=== PATIENT | male | born 1950 | race Caucasian/White ===

== ENCOUNTER → 2020-05-13 | Outpatient (CLI) | payer OTHER ==
[~2020-05-13] MED LIST: AMLO-211 PO; FINA5TAB4 PO; SIMV20TA19 PO; TAMS-11 PO
[2020-05-13 15:38] LABS: MICROSCOPIC NOT IND
[2020-05-13 15:50] LABS: INTERNATIONAL NORMALIZED RATIO 0.98 (0.93-1.1); PROTHROMBIN TIME 10.5 Seconds (9.6-11.5)
[2020-05-13 15:51] LABS: BASOPHILS % (AUTO) 1 % (0-1); EOSINOPHILS % (AUTO) 3 % (1-7); LYMPHOCYTES % (AUTO) 23 % (22-44); MEAN CORPUSCULAR HGB CONC 34.4 g/dL (33.2-36.2); MEAN PLATELET VOLUME 10.8 fL (7.4-10.4); MONOCYTES % (AUTO) 5 % (2-9); NEUTROPHILS % (AUTO) 69 % (42-75); PLATELET COUNT 139 x10^3/uL (130-400); RED BLOOD COUNT 4.93 x10^6/uL (4.38-5.82); RED CELL DISTRIBUTION WIDTH 14.1 % (9.4-14.8)
[2020-05-13 15:52] LABS: MD NO
== END | disposition home or self-care (01) ==
LOC: STAR 14:35
PROVIDERS: ATTEND Urology
DX: Z01.812 Encounter for preprocedural laboratory examination (principal); Z20.822 Contact with and (suspected) exposure to COVID-19; N35.919 Unspecified urethral stricture, male, unspecified site
CPT/HCPCS: 81003; 85025; 85610; 85730; 87086; U0003; 36415

== ENCOUNTER 2020-05-17 14:06 | Day surgery (SDC) | payer OTHER ==
[~2020-05-17] VITALS: Ht 180.3 cm; Wt 91.8 kg
[2020-05-17] MEDS ORDERED: CHLORHEXIDINE 15 ML UDC ONE (14:18)
[2020-05-17 14:21] VITALS: BP 142/85
[2020-05-17] MEDS ORDERED: CHLORHEXIDINE 15 ML UDC PO ONE (14:30)
[2020-05-17] MEDS ORDERED: LACTATED RINGERS 1,000 ML IV SCH (14:30)
[2020-05-17] MEDS ORDERED: morphine SULFATE 10 MG/ML, 1ML IVPush PRN (15:30)
[2020-05-17] MEDS ORDERED: FENTANYL PF 100 MCG/2ML IV PRN (15:30)
[2020-05-17] MEDS ORDERED: OXYcodone 5 MG/5 ML ORAL.SOL UDC PO PRN (15:30)
[2020-05-17] MEDS ORDERED: hydrALAzine 20 MG/ML, 1ML IV PRN (15:30)
[2020-05-17] MEDS ORDERED: ACETAMINOPHEN 325 MG TABLET PO PRN (15:30)
[2020-05-17] MEDS ORDERED: ONDANSETRON 2MG/ML, 2ML IVPush PRN (15:30)
[2020-05-17] MEDS ORDERED: LABETALOL 5MG/ML, 20ML IV PRN (15:30)
[2020-05-17] MEDS ORDERED: PROMETHAZINE 25 MG/ML, 1ML IVPush PRN (15:30)
[2020-05-17] MEDS ORDERED: FENTANYL PF 250 MCG/5ML ONE (16:40)
[2020-05-17] MEDS ORDERED: DEXAMETHASONE 4 MG/ML, 1ML ONE (16:55)
[2020-05-17] MEDS ORDERED: ONDANSETRON 2MG/ML, 2ML ONE (16:55)
[2020-05-17] MEDS ORDERED: PROPOFOL 10 MG/ML, 20ML ONE (16:55)
[2020-05-17] MEDS ORDERED: CEFAZOLIN 1,000 MG ONE ×2 (16:57)
[2020-05-17] MEDS ORDERED: OPIUM/BELLADONNA SUPP.RECT 16.2-30 MG ONE (17:47)
[2020-05-17] MEDS ORDERED: OPIUM/BELLADONNA SUPP.RECT 16.2-30 MG PR ONE (18:00)
[2020-09-02] MEDS ORDERED: ROSU10TA2 PO (08:29)
[2020-09-02] MEDS ORDERED: Fish Oil PO (08:29)
[2020-09-02] MEDS ORDERED: AREDS PO (08:29)
== END 2020-05-17 20:25 | disposition home or self-care (01) ==
LOC: OR 14:06
PROVIDERS: ATTEND Urology
DX: N35.912 Unspecified bulbous urethral stricture, male (principal); N40.0 Benign prostatic hyperplasia without lower urinary tract symptoms; I10 Essential (primary) hypertension; E78.2 Mixed hyperlipidemia; Z79.899 Other long term (current) drug therapy; Z86.73 Personal history of transient ischemic attack (TIA), and cerebral infarction without residual deficits; Z88.0 Allergy status to penicillin; Z88.1 Allergy status to other antibiotic agents; Z96.653 Presence of artificial knee joint, bilateral
CPT/HCPCS: 52276; J0690; J1100; J2405; J2704; J3010; J7120

== ENCOUNTER → 2020-08-08 | Outpatient (CLI) | payer OTHER | END | disposition home or self-care (01) | LOC: CVU 07:45 | PROVIDERS: ATTEND Internal Medicine Cardiovascular Disease | DX: I08.0 Rheumatic disorders of both mitral and aortic valves (principal); I65.23 Occlusion and stenosis of bilateral carotid arteries; R94.31 Abnormal electrocardiogram [ECG] [EKG] | CPT/HCPCS: 93306; 93356; 93880 ==

== ENCOUNTER 2020-09-05 10:41 | Observation (INO) | payer OTHER ==
[~2020-09-05] VITALS: Ht 180.3 cm; Wt 90.8 kg
[~2020-09-05 10:41] MED LIST changes: +AREDS PO; +Fish Oil PO; +ROSU10TA2 PO
[2020-09-05] MEDS ORDERED: CHLORHEXIDINE 15 ML UDC PO ONE (11:30)
[2020-09-05] MEDS ORDERED: LACTATED RINGERS 1,000 ML IV SCH (11:30)
[2020-09-05] MEDS ORDERED: CHLORHEXIDINE 15 ML UDC ONE (11:32)
[2020-09-05] MEDS ORDERED: TRANEXAMIC ACID 100 MG/ML, 10ML ONE ×2 (12:30)
[2020-09-05] MEDS ORDERED: FENTANYL PF 250 MCG/5ML ONE ×2 (12:51→14:49)
[2020-09-05] MEDS ORDERED: METHYLENE BLUE 50 MG/10 ML AMP ONE (12:56)
[2020-09-05] MEDS ORDERED: BUPIVACAINE 0.25% ONE (12:56)
[2020-09-05] MEDS ORDERED: FLUORESCEIN SODIUM 500 MG/5 ML ONE (12:56)
[2020-09-05] MEDS ORDERED: EPINEPHRINE 1 MG/ML, 1ML ONE (12:57)
[2020-09-05] MEDS ORDERED: OPIUM/BELLADONNA SUPP.RECT 16.2-60 MG ONE (12:57)
[2020-09-05] MEDS ORDERED: ACETAMINOPHEN 325 MG TABLET PO PRN (13:30)
[2020-09-05] MEDS ORDERED: ONDANSETRON 2MG/ML, 2ML IVPush PRN (13:30)
[2020-09-05] MEDS ORDERED: morphine SULFATE 10 MG/ML, 1ML IVPush PRN (13:30)
[2020-09-05] MEDS ORDERED: FENTANYL PF 100 MCG/2ML IV PRN (13:30)
[2020-09-05] MEDS ORDERED: OXYcodone 5 MG/5 ML ORAL.SOL UDC PO PRN (13:30)
[2020-09-05] MEDS ORDERED: HYDROmorphone 1 MG/ML, 1ML INJ IVPush PRN (13:30)
[2020-09-05] MEDS ORDERED: hydrALAzine 20 MG/ML, 1ML IV PRN (13:30)
[2020-09-05] MEDS ORDERED: MEPERIDINE/PF 25MG/0.5ML IVPush PRN (13:30)
[2020-09-05] MEDS ORDERED: LABETALOL 5MG/ML, 20ML IV PRN (13:30)
[2020-09-05] MEDS ORDERED: NEOSTIGMINE 1 MG/ML, 10ML ONE (15:44)
[2020-09-05] MEDS ORDERED: GLYCOPYRROLATE 0.2MG/1ML, 5ML ONE (15:44)
[2020-09-05] MEDS ORDERED: PROPOFOL 10 MG/ML, 20ML ONE (15:44)
[2020-09-05] MEDS ORDERED: ROCURONIUM 10MG/ML,5ML ONE (15:44)
[2020-09-05] MEDS ORDERED: CEFAZOLIN 1,000 MG ONE (15:44)
[2020-09-05] MEDS ORDERED: ONDANSETRON 2MG/ML, 2ML IV PRN (18:30)
[2020-09-05] MEDS ORDERED: OXYcodone IR 5MG TABLET PO PRN (18:30)
[2020-09-05] MEDS: ACETAMINOPHEN 500 MG TABLET PO SCH (19:33)
[2020-09-05] MEDS ORDERED: AMLODIPINE 10 MG TAB PO SCH (21:00)
[2020-09-06] MEDS: ACETAMINOPHEN 500 MG TABLET PO SCH ×2 (00:54→08:01)
[2020-09-06 01:02] VITALS: BP 146/76
[2020-09-06] MEDS: D5%-0.45NACL+KCL 20MEQ 1,000 ML IV SCH ×2 (01:21→09:55)
[2020-09-06 04:46] VITALS: BP 130/71
[2020-09-06 05:25] LABS: ANION GAP 3 mmol/L (5-15); CALCIUM 8.5 mg/dL (8.5-10.1); CHLORIDE 109 mmol/L (98-107); CREATININE 0.99 mg/dL (0.7-1.3)
[2020-09-06 08:04] VITALS: BP 151/73
[2020-09-06 14:29] VITALS: BP 143/85
== END 2020-09-06 14:46 | disposition home or self-care (01) ==
LOC: OUT 10:41 → 4NE 17:52 → OUT 18:29 → 4NE 18:29
PROVIDERS: ADMIT Urology; ATTEND Urology
DX: N40.1 Benign prostatic hyperplasia with lower urinary tract symptoms (principal); R39.15 Urgency of urination; N35.919 Unspecified urethral stricture, male, unspecified site; E78.5 Hyperlipidemia, unspecified; Z79.899 Other long term (current) drug therapy
CPT/HCPCS: 36415; 55866; 80048; 85014; 85018; 86850; 86900; 88309; 93005; 96360; 96361; G0378; J0171; J0690; J2704; J2710; J3010; J3480; J7120; S2900; Q9968